=== PATIENT | female | born 1990 | race Caucasian/White ===

== ENCOUNTER 2020-05-30 18:14 | Inpatient (IN) | payer MEDICAID, SELFPAY ==
[~2020-05-30] VITALS: Ht 157.5 cm; Wt 78.9 kg
[~2020-05-30 18:14] MED LIST: HYDROmorphone 1 MG/ML AMP IVP PRN; LORA10TA19 PO; NALOXONE 0.4 MG/ML VIAL IVP PRN; ONDANSETRON 4 MG/2 ML VIAL IVP PRN; PREN-380 PO; diphenhydrAMINE 50 MG/ML VIAL IVP PRN
[2020-05-30] MEDS ORDERED: CARBOPROST 250 MCG/ML AMP IM PRN (18:45)
[2020-05-30] MEDS ORDERED: PROMETHAZINE 25 MG/ML VIAL IVP PRN (18:45)
[2020-05-30] MEDS ORDERED: TRA200 PO (19:03)
[2020-05-30] MEDS ORDERED: ASPI-1822 PO (19:03)
[2020-05-30] MEDS ORDERED: LACTATED RINGERS 1,000 ML IV SCH (19:05)
[2020-05-30 19:31] VITALS: BP 141/90
[2020-05-30 19:36] LABS: BASOPHILS # (AUTO) 0.1 K/uL (0.00-0.22); BASOPHILS % (AUTO) 0.6 % (0.0-2.0); EOSINOPHILS # (AUTO) 0.2 K/uL (0-0.4); EOSINOPHILS % (AUTO) 2.1 % (0.0-4.0); HEMATOCRIT 32.8 % (36-48); LYMPHOCYTES # (AUTO) 2.6 K/uL (2.5-16.5); MEAN CORPUSCULAR HEMOGLOBIN 33 pg (27-31); MEAN CORPUSCULAR HGB CONC 33 g/dL (33-37); MEAN CORPUSCULAR VOLUME 98.5 fL (80-94); MONOCYTES # (AUTO) 0.5 K/uL (0.8-1.0); MONOCYTES % (AUTO) 5.9 % (1.7-9.3); NEUTROPHILS # (AUTO) 5.6 K/uL (1.8-7.7); NEUTROPHILS % (AUTO) 62.4 % (42.2-75.2); PLATELET COUNT (AUTO) 233 K/uL (140-450); RED BLOOD CELL COUNT(AUTO) 3.33 MIL/uL (4.20-5.40); RED CELL DISTRIBUTION WIDTH 12.8 % (11.6-13.7)
[2020-05-30 20:08] LABS: PROTHROMBIN TIME 8.8 secs (10.8-13.4)
[2020-05-30] MEDS ORDERED: MAG SULF 20 GM/H2O PREMIX DRIP 500 ML IV ONE (20:41)
[2020-05-30 20:59] LABS: ALBUMIN 2.1 g/dL (3.4-5.0); ANION GAP 15.4 (8-16); CARBON DIOXIDE 23.6 mmol/L (21-32); CREATININE 1.1 mg/dL (0.6-1.3); TOTAL BILIRUBIN 0.1 mg/dL (0.0-1.0); URIC ACID 9.1 mg/dL (2.6-7.2)
[2020-05-30] MEDS ORDERED: LABETALOL 200 MG TAB PO SCH (21:00)
[2020-05-30] MEDS ORDERED: LABETALOL 100 MG/20 ML VIAL IVP SCH (21:05)
[2020-05-30] MEDS ORDERED: CITRIC ACID/SODIUM CITRATE 30 ML UDC PO SCH (21:15)
[2020-05-30] MEDS ORDERED: MIDAZOLAM 2 MG/2 ML VIAL ONE (21:43)
[2020-05-30] MEDS ORDERED: MORPHINE PRES FREE 10 MG/10 ML AMP IV ONE (21:43)
[2020-05-30] MEDS ORDERED: CITRIC ACID/SODIUM CITRATE 30 ML UDC ONE (22:00)
[2020-05-30] MEDS ORDERED: ceFAZolin 1,000 MG VIAL ONE (22:00)
[2020-05-30] MEDS ORDERED: ceFAZolin 1,000 MG VIAL IVP ONE (22:15)
[2020-05-30] MEDS ORDERED: OXYTOCIN 20 UNITS in LACTATED RINGERS 1,000 ML IV SCH (22:26)
[2020-05-30 22:27] LABS: APPEARANCE,URINE SL CLOUDY (CLEAR); BILIRUBIN,URINE NEGATIVE (NEGATIVE); BLOOD, URINE NEGATIVE (NEGATIVE); COLOR,URINE YELLOW (YELLOW); LEUKOCYTE ESTERASE ,URINE TRACE (NEGATIVE); NITRITE, URINE NEGATIVE (NEGATIVE); PH,URINE 6.5 (5.0-9.0); UGLUCOSE NEGATIVE (NEGATIVE)
[2020-05-30] MEDS ORDERED: diphenhydrAMINE 50 MG/ML VIAL IVP PRN ×2 (22:30)
[2020-05-30] MEDS ORDERED: MEPERIDINE 25 MG/ML SYR IVP PRN (22:30)
[2020-05-30] MEDS ORDERED: ONDANSETRON 4 MG/2 ML VIAL IVP PRN ×2 (22:30)
[2020-05-30] MEDS ORDERED: NALOXONE 0.4 MG/ML VIAL IVP PRN ×3 (22:30)
[2020-05-30] MEDS ORDERED: HYDROmorphone 1 MG/ML AMP IVP PRN (22:30)
[2020-05-30] MEDS ORDERED: NALBUPHINE 10 MG/ML AMP IVP PRN (22:30)
[2020-05-30] MEDS ORDERED: ONDANSETRON 4 MG/2 ML VIAL ONE (22:53)
[2020-05-30] MEDS ORDERED: diphenhydrAMINE 50 MG/ML VIAL ONE (22:53)
[2020-05-30] MEDS ORDERED: OXYTOCIN 20 UNITS/LR PREMIX 1,000 ML IV ONE (22:53)
[2020-05-30] MEDS ORDERED: OXYTOCIN 10 UNITS in LACTATED RINGERS 1,000 ML IV SCH (23:09)
[2020-05-30] MEDS ORDERED: MEASLES, MUMPS, AND RUBELLA 1 VIAL SQVAC PRN (23:10)
[2020-05-30] MEDS ORDERED: oxyCODONE/APAP 5/325 MG 1 TAB TAB PO PRN (23:10)
[2020-05-30] MEDS ORDERED: METHYLERGONOVINE 0.2 MG/ML AMP IM PRN (23:10)
[2020-05-31] MEDS ORDERED: KETOROLAC 30 MG/ML VIAL IM/IVP SCH
[2020-05-31 00:09] LABS: URINE TOTAL PROTEIN 79.6 mg/dL (0-12)
[2020-05-31 00:14] LABS: RBC,URINE 0-5 /HPF (0-5)
[2020-05-31] MEDS: KETOROLAC 30 MG/ML VIAL IM/IVP SCH ×2 (01:27→20:13)
[2020-05-31] MEDS: MAG SULF 20 GM/H2O PREMIX DRIP 500 ML IV SCH ×3 (06:28→19:14)
[2020-05-31 06:38] LABS: BASOPHILS # (AUTO) 0.1 K/uL (0.00-0.22); BASOPHILS % (AUTO) 0.8 % (0.0-2.0); EOSINOPHILS # (AUTO) 0.1 K/uL (0-0.4); HEMATOCRIT 31.2 % (36-48); HEMOGLOBIN 10.6 g/dL (12.0-16.0); LYMPHOCYTES # (AUTO) 2.7 K/uL (2.5-16.5); LYMPHOCYTES % (AUTO) 24.9 % (20.5-51.1); MEAN CORPUSCULAR HEMOGLOBIN 34 pg (27-31); MEAN CORPUSCULAR HGB CONC 34 g/dL (33-37); MEAN CORPUSCULAR VOLUME 98.7 fL (80-94); MONOCYTES # (AUTO) 0.5 K/uL (0.8-1.0); MONOCYTES % (AUTO) 4.5 % (1.7-9.3); NEUTROPHILS # (AUTO) 7.3 K/uL (1.8-7.7); NEUTROPHILS % (AUTO) 68.8 % (42.2-75.2); PLATELET COUNT (AUTO) 203 K/uL (140-450); RED BLOOD CELL COUNT(AUTO) 3.16 MIL/uL (4.20-5.40); WHITE BLOOD COUNT (AUTO) 10.7 K/uL (4.8-10.8)
--- NOTE | 2020-05-31 08:21 | NUR ---
PATIENT HAS BEEN SCREENED AND CATEGORIZED LOW NUTRITION RISK. PATIENT WILL BE SEEN WITHIN 7 DAYS OF ADMISSION. 06/06/[address]
[2020-05-31] MEDS ORDERED: BISACODYL 10 MG SUPP RC SCH (09:00)
[2020-05-31] MEDS: ECOTRIN 81 MG TABEC PO SCH (09:35)
[2020-05-31] MEDS ORDERED: OXYTOCIN 20 UNITS/LR PREMIX 1,000 ML IV ONE (12:54)
[2020-06-01] MEDS: MAG SULF 20 GM/H2O PREMIX DRIP 500 ML IV SCH (05:12)
[2020-06-01] MEDS ORDERED: KETOROLAC 30 MG/ML VIAL ONE (08:26)
[2020-06-01] MEDS: ECOTRIN 81 MG TABEC PO SCH (09:35)
[2020-06-01] MEDS ORDERED: CAMERA MC ONE (16:35)
== END 2020-06-01 20:10 | disposition home or self-care (01) | DRG 540 ==
LOC: MLD 18:14 → UNDOADMOB 18:14 → MLD 18:30 → OBSVTOIN 19:10 → INTOOBSV 19:10 → UNDODISIN 05-31 12:30 → MFCC 06-01 09:00
PROVIDERS: ADMIT Obstetrics & Gynecology; ATTEND Obstetrics & Gynecology
PROC: 10D00Z1 Extraction of Products of Conception, Low, Open Approach (ICD-10-PCS; principal; 2020-05-30 21:00)
DX: O76 Abnormality in fetal heart rate and rhythm complicating labor and delivery (principal); O36.5930 Maternal care for other known or suspected poor fetal growth, third trimester, not applicable or unspecified; O24.429 Gestational diabetes mellitus in childbirth, unspecified control; O99.02 Anemia complicating childbirth; D64.9 Anemia, unspecified; Z20.828 Contact with and (suspected) exposure to other viral communicable diseases; O14.14 Severe pre-eclampsia complicating childbirth; Z37.0 Single live birth; Z3A.34 34 weeks gestation of pregnancy
CPT/HCPCS: 36415; 80053; 81001; 82570; 82948; 83735; 84550; 85025; 85384; 85610; 85730; 86592; 86886; 86900; 86901; 87086; 87653-90; G0378; J0690; J1200; J1885; J2250; J2270; J2405; J2590; J3475; J7120; U0003-CS

== ENCOUNTER 2021-08-11 19:15 | Observation (INO) | payer SELFPAY ==
[~2021-08-11] VITALS: Ht 157.5 cm; Wt 73.0 kg
[~2021-08-11 19:15] MED LIST changes: +ASPI-1822 PO; -HYDROmorphone 1 MG/ML AMP IVP PRN; -NALOXONE 0.4 MG/ML VIAL IVP PRN; -ONDANSETRON 4 MG/2 ML VIAL IVP PRN; -diphenhydrAMINE 50 MG/ML VIAL IVP PRN
[2021-08-11 19:41] VITALS: BP 123/76
== END 2021-08-11 23:00 | disposition home or self-care (01) ==
LOC: MLD 19:15
PROVIDERS: ADMIT Obstetrics & Gynecology; ATTEND Obstetrics & Gynecology
DX: O36.8130 Decreased fetal movements, third trimester, not applicable or unspecified (principal); Z3A.32 32 weeks gestation of pregnancy
CPT/HCPCS: 59025; 76819; G0378; Q0092; 81000

== ENCOUNTER 2021-09-18 23:40 | Observation (INO) | payer MEDICAID ==
[~2021-09-18] VITALS: Ht 157.5 cm; Wt 75.3 kg
== END 2021-09-19 00:45 | disposition home or self-care (01) ==
LOC: MLD 23:40
PROVIDERS: ADMIT Obstetrics & Gynecology; ATTEND Obstetrics & Gynecology
DX: O62.9 Abnormality of forces of labor, unspecified (principal); Z3A.38 38 weeks gestation of pregnancy
CPT/HCPCS: G0378; G0379